=== PATIENT | male | born 2000 ===

== ENCOUNTER 2023-04-20 04:14 | Emergency (ER) | payer OTHER ==
[2023-04-20] MEDS ORDERED: HYDROcodone/Acetaminophen 5/325 mg Tablet ONE (04:38)
[2023-04-20] MEDS ORDERED: Benzocaine 20% Spray 60 ML CAN PO SCH (05:15)
== END 2023-04-20 05:15 | disposition home or self-care (01) ==
LOC: CSHERS 04:14
DX: K02.9 Dental caries, unspecified (principal)
CPT/HCPCS: 99282